=== PATIENT | female | born 1990 | race Two or more races ===

== ENCOUNTER → 2017-09-01 | Day surgery (SDC) | payer OTHER | END | disposition home or self-care (01) | LOC: CIR.AMB 05:45 | DX: N84.0 Polyp of corpus uteri (principal) ==

== ENCOUNTER 2017-11-07 14:11 | Emergency (ER) | payer OTHER ==
[~2017-11-07] VITALS: Ht 182.9 cm; Wt 94.8 kg
[2017-11-07] MEDS ORDERED: DEPAKOTE ER500 MG (14:46)
== END 2017-11-07 16:42 | disposition home or self-care (01) ==
LOC: ER 14:11
DX: G43.909 Migraine, unspecified, not intractable, without status migrainosus (principal); R11.2 Nausea with vomiting, unspecified

== ENCOUNTER 2018-01-22 10:17 | Emergency (ER) | payer OTHER ==
[~2018-01-22] VITALS: Ht 185.4 cm; Wt 94.8 kg
[~2018-01-22 10:17] MED LIST: DEPAKOTE ER500 MG
[2018-01-22] MEDS ORDERED: PRENATAL + DHA1 EAC1 PO (10:31)
== END 2018-01-22 13:44 | disposition home or self-care (01) ==
LOC: ER 10:17
DX: O46.8X2 Other antepartum hemorrhage, second trimester (principal); Z34.02 Encounter for supervision of normal first pregnancy, second trimester

== ENCOUNTER 2018-04-20 19:41 | Outpatient (CLI) | payer OTHER ==
[~2018-04-20 19:41] MED LIST changes: +PRENATAL + DHA1 EAC1 PO
[2018-04-21] MEDS ORDERED: CEFADROXIL500 MG PO (07:20)
[2018-04-21] MEDS ORDERED: VISTARIL50 MG PO (07:20)
== END 2018-04-21 09:58 | disposition home or self-care (01) ==
LOC: OBS/DEL 19:41
DX: O26.892 Other specified pregnancy related conditions, second trimester (principal); G43.019 Migraine without aura, intractable, without status migrainosus; Z34.82 Encounter for supervision of other normal pregnancy, second trimester

== ENCOUNTER 2018-07-08 10:26 | Outpatient (CLI) | payer OTHER ==
[~2018-07-08 10:26] MED LIST changes: +CEFADROXIL500 MG PO; +VISTARIL50 MG PO
[2018-07-09] MEDS ORDERED: CEFADROXIL500 MG PO (07:23)
== END 2018-07-09 10:56 | disposition home or self-care (01) ==
LOC: OBS/DEL 10:26
DX: O23.43 Unspecified infection of urinary tract in pregnancy, third trimester (principal); O26.893 Other specified pregnancy related conditions, third trimester; Z34.03 Encounter for supervision of normal first pregnancy, third trimester; G43.809 Other migraine, not intractable, without status migrainosus; R11.2 Nausea with vomiting, unspecified

== ENCOUNTER 2018-07-15 15:12 | Inpatient (IN) | payer OTHER ==
[~2018-07-15] VITALS: Ht 180.3 cm; Wt 1.8 kg
[2018-07-23] MEDS ORDERED: LABETALOL HCL100 MG PO (07:08)
[2018-07-23] MEDS ORDERED: GAS RELIEF125 MG PO (07:08)
[2018-07-23] MEDS ORDERED: IBUPROFEN800 MG PO (07:08)
== END 2018-07-23 12:04 | DRG 786 ==
LOC: OB/GYN 15:12 → LDR 15:12 → OB/GYN 07-16 16:19 → LDR 07-16 17:58 → OB/GYN 07-16 19:50
PROVIDERS: ADMIT Obstetrics & Gynecology
PROC: BY4FZZZ Ultrasonography of Third Trimester, Single Fetus (ICD-10-PCS; 2018-07-15)
PROC: 4A1HXCZ Monitoring of Products of Conception, Cardiac Rate, External Approach (ICD-10-PCS; 2018-07-15)
PROC: 10D00Z1 Extraction of Products of Conception, Low, Open Approach (ICD-10-PCS; principal; 2018-07-20 09:00)
DX: O82 Encounter for cesarean delivery without indication (principal); O60.14X0 Preterm labor third trimester with preterm delivery third trimester, not applicable or unspecified; O98.113 Syphilis complicating pregnancy, third trimester; O99.830 Other infection carrier state complicating pregnancy; O14.14 Severe pre-eclampsia complicating childbirth; Z3A.35 35 weeks gestation of pregnancy; Z37.0 Single live birth

== ENCOUNTER 2019-02-08 09:52 | Emergency (ER) | payer OTHER ==
[~2019-02-08] VITALS: Ht 182.9 cm; Wt 95.3 kg
[~2019-02-08 09:52] MED LIST changes: +GAS RELIEF125 MG PO; +IBUPROFEN800 MG PO; +LABETALOL HCL100 MG PO
== END 2019-02-08 16:19 | disposition home or self-care (01) ==
LOC: ER 09:52
DX: K52.9 Noninfective gastroenteritis and colitis, unspecified (principal)

== ENCOUNTER 2022-04-22 09:36 | Emergency (ER) | payer OTHER ==
[~2022-04-22] VITALS: Ht 182.9 cm; Wt 60.8 kg
== END 2022-04-22 13:20 | disposition home or self-care (01) ==
LOC: ER 09:36
DX: K52.9 Noninfective gastroenteritis and colitis, unspecified (principal)

== ENCOUNTER 2022-08-04 14:47 | Emergency (ER) | payer OTHER ==
[~2022-08-04] VITALS: Ht 182.9 cm; Wt 104.3 kg
== END 2022-08-04 21:20 | disposition home or self-care (01) ==
LOC: ER 14:47
DX: J06.9 Acute upper respiratory infection, unspecified (principal); R53.81 Other malaise; Z20.822 Contact with and (suspected) exposure to COVID-19

== ENCOUNTER 2023-10-14 10:51 | Emergency (ER) | payer OTHER ==
[~2023-10-14] VITALS: Ht 182.9 cm; Wt 102.1 kg
[2023-10-14] MEDS ORDERED: ONDANSETRON 4 MG TAB.RAPDIS PO ONE ×2 (12:00→12:15)
[2023-10-14] MEDS ORDERED: KETOROLAC TROMETHAMINE 60 MG VIAL IM ONE ×2 (12:00→12:15)
[2023-10-14] MEDS ORDERED: MEPERIDINE HCL 25 MG/ML AMPUL IM ONE (14:45)
== END 2023-10-14 16:37 | disposition home or self-care (01) ==
LOC: ER 10:52
DX: G43.909 Migraine, unspecified, not intractable, without status migrainosus (principal)